=== PATIENT | female | born 1990 | race Two or more races ===

== ENCOUNTER 2017-12-28 11:20 | Emergency (ER) | payer MEDICAID ==
[~2017-12-28] VITALS: Ht 162.6 cm; Wt 93.0 kg
[2017-12-28 11:35] VITALS: BP 165/70
== END 2017-12-28 12:51 | disposition home or self-care (01) ==
LOC: ER 11:20
DX: F41.9 Anxiety disorder, unspecified (principal); F31.9 Bipolar disorder, unspecified; Z76.0 Encounter for issue of repeat prescription

== ENCOUNTER 2018-07-14 11:02 | Emergency (ER) | payer MEDICAID, OTHER ==
[~2018-07-14] VITALS: Ht 162.6 cm; Wt 88.5 kg
[2018-07-14] MEDS ORDERED: KETOROLAC TROMETH 60MG/2ML VIAL IM ONE (13:45)
[2018-07-14 14:05] VITALS: BP 146/88
== END 2018-07-14 15:01 | disposition home or self-care (01) ==
LOC: ER 11:02
DX: M54.5 Low back pain (principal); E11.9 Type 2 diabetes mellitus without complications; F17.210 Nicotine dependence, cigarettes, uncomplicated; X50.1XXA Overexertion from prolonged static or awkward postures, initial encounter; Y93.89 Activity, other specified; Y92.89 Other specified places as the place of occurrence of the external cause; Y99.8 Other external cause status
CPT/HCPCS: 72100; 96372; 99284; J1885

== ENCOUNTER 2019-07-04 20:13 | Inpatient (IN) | payer MEDICAID ==
[~2019-07-04] VITALS: Ht 162.6 cm; Wt 77.3 kg
[2019-07-04 21:40] LABS: Basophils # (auto) 0.2 uL; Basophils % (auto) 1.2 % (0.0-2.0); Eosinophils # (auto) 0.3 uL; Eosinophils % (auto) 1.8 % (0.0-7.0); Hematocrit 41.5 % (36.0-46.0); Lymphocytes # (auto) 4.9 uL; Lymphocytes % (auto) 28.9 % (10.0-50.0); Mean Corpuscular Hemoglobin 30.5 pg (28.0-32.0); Mean Corpuscular Hgb Conc. 33.8 g/dL (32.0-36.0); Mean Corpuscular Volume 90.4 fL (80.0-100.0); Neutrophils # (auto) 10.6 uL; Neutrophils % (auto) 62.1 % (37.0-80.0); Nucleated Red Blood Cells % 0.1 %; Platelet Count (auto) 427 10^3/uL (140-450); Red Blood Cells 4.59 10^6/uL (4.0-5.20); Red Cell Distribution Width 13.9 % (11.8-14.3)
[2019-07-04 21:49] LABS: Urine WBC None Seen /hpf (0 - 5)
[2019-07-04 21:55] LABS: Albumin 3.7 g/dL (3.4-5.0); Calcium 8.9 mg/dL (8.5-10.1); Potassium 3.8 mmol/L (3.5-5.1)
[2019-07-04 21:57] LABS: Bilirubin, Total 0.3 mg/dL (0.2-1.0)
[2019-07-04 22:15] LABS: Urine Bacteria NONE SEEN /hpf (None Seen); Urine Blood Negative /uL (Negative); Urine Specific Gravity 1.028 (1.001-1.035)
[2019-07-05] MEDS ORDERED: VANCOMYCIN 1GM/250ML 250 ML IV ONE (01:00)
[2019-07-05] MEDS ORDERED: HYDROmorphone HCL 2 MG/ML VL IV ONE (02:15)
[2019-07-05] MEDS ORDERED: ONDANSETRON HCL 4 MG/2 ML VIAL IV ONE (02:15)
[2019-07-05] MEDS ORDERED: SODIUM CHLORIDE 0.9% 1,000 ML IV SCH (06:10)
[2019-07-05] MEDS ORDERED: InsuLIN R (HUMAN) 100 UNITS in SODIUM CHL 0.9% 99 ML IV SCH (06:10)
[2019-07-05] MEDS ORDERED: MORPHINE SULF INJ 2 MG/ML SYRINGE 1ML IV PRN (06:15)
[2019-07-05] MEDS ORDERED: DOCUSATE SOD 100 MG CAP PO PRN (06:15)
[2019-07-05] MEDS ORDERED: TEMAZEPAM 15 MG CAP PO PRN (06:15)
[2019-07-05] MEDS ORDERED: NITROGLYCERIN 0.4 MG SL TAB SL PRN (06:15)
[2019-07-05] MEDS ORDERED: ONDANSETRON HCL 4 MG/2 ML VIAL IV PRN (06:15)
[2019-07-05] MEDS ORDERED: DEXTROSE (50%) 50ML SYRG IV PRN ×2 (06:15→10:45)
[2019-07-05] MEDS ORDERED: DEXTROSE (50%) 50ML SYRG IV ONE (06:30)
[2019-07-05] MEDS ORDERED: InsuLIN REG 1unit/0.01ml Soln (100units/ml) SC ONE (07:00)
[2019-07-05] MEDS ORDERED: ACCU-CHEK COMFORT CURVE STRIP VI ONE (07:00)
[2019-07-05] MEDS: ACCU-CHEK COMFORT CURVE STRIP VI SCH ×6 (08:27→20:00)
[2019-07-05] MEDS: ZINC SULFATE 220mg CAP or TAB PO SCH (09:41)
[2019-07-05] MEDS: ENOXAPARIN SOD 30 MG/0.3 ML SYRINGE SC SCH (09:41)
[2019-07-05] MEDS: ASCORBIC ACID 500 MG TAB PO SCH ×2 (09:41→20:40)
[2019-07-05] MEDS: FAMOTIDINE 20 MG TAB PO SCH ×2 (09:41→20:41)
[2019-07-05] MEDS ORDERED: cefTRIAXone 1GM/50ML D5W 50 ML IV ONE (10:00)
[2019-07-05] MEDS: ACETAMINOPHEN 325 MG TAB PO PRN (11:39)
[2019-07-05] MEDS: InsuLIN REG 1unit/0.01ml Soln (100units/ml) SC SCH ×3 (12:26→20:00)
[2019-07-05] MEDS: CLINDAMYCIN 600MG IV 50 ML IV SCH (14:48)
[2019-07-05 16:00] VITALS: BP 142/109
[2019-07-05] MEDS ORDERED: METF-370 PO (16:57)
[2019-07-05] MEDS ORDERED: OLAN20TA13 PO (16:57)
[2019-07-05] MEDS ORDERED: DIVA1TAB59 PO (16:57)
[2019-07-05 17:00] VITALS: BP 142/109
[2019-07-05] MEDS: metFORMIN HYDROCHLORIDE 500 MG TAB PO SCH (18:02)
[2019-07-05 22:00] VITALS: BP_SYST 135; BP_SYST 144; BP_DIAS 79; BP_DIAS 99
[2019-07-06] MEDS ORDERED: CLINDAMYCIN 600MG IV 50 ML IV ONE (00:03)
[2019-07-06] MEDS: CLINDAMYCIN 600MG IV 50 ML IV SCH ×3 (00:04→14:50)
[2019-07-06] MEDS: ACCU-CHEK COMFORT CURVE STRIP VI SCH ×6 (04:00→21:29)
[2019-07-06] MEDS: InsuLIN REG 1unit/0.01ml Soln (100units/ml) SC SCH ×6 (04:00→21:43)
[2019-07-06 05:00] VITALS: BP 151/93
[2019-07-06 06:14] LABS: Albumin 3.2 g/dL (3.4-5.0); Calcium 8.5 mg/dL (8.5-10.1); Potassium 4.2 mmol/L (3.5-5.1)
[2019-07-06 06:18] LABS: BUN/Creatinine Ratio 18.1; Bilirubin, Total 0.3 mg/dL (0.2-1.0); Total Protein 7.1 g/dL (6.4-8.2)
[2019-07-06] MEDS: metFORMIN HYDROCHLORIDE 500 MG TAB PO SCH ×2 (08:54→17:13)
[2019-07-06] MEDS: ACETAMINOPHEN 325 MG TAB PO PRN ×2 (08:55→21:40)
[2019-07-06 09:00] VITALS: BP 135/86
[2019-07-06] MEDS ORDERED: DEXTROSE (50%) 50ML SYRG IV PRN (09:15)
[2019-07-06] MEDS ORDERED: cloNIDine HCL 0.1 MG TAB PO PRN (09:30)
[2019-07-06 09:47] LABS: Basophils # (auto) 0.1 uL; Basophils % (auto) 0.9 % (0.0-2.0); Eosinophils # (auto) 0.2 uL; Eosinophils % (auto) 1.2 % (0.0-7.0); Hematocrit 41.7 % (36.0-46.0); Hemoglobin 13.7 g/dL (12.2-16.2); Lymphocytes # (auto) 3.6 uL; Lymphocytes % (auto) 25.5 % (10.0-50.0); Mean Corpuscular Hgb Conc. 32.7 g/dL (32.0-36.0); Mean Corpuscular Volume 91.6 fL (80.0-100.0); Monocytes # (auto) 0.7 uL; Monocytes % (auto) 4.9 % (0.0-12.0); Neutrophils # (auto) 9.6 uL; Neutrophils % (auto) 67.5 % (37.0-80.0); Nucleated Red Blood Cells % 0.1 %; Platelet Count (auto) 376 10^3/uL (140-450); Red Blood Cells 4.55 10^6/uL (4.0-5.20); Red Cell Distribution Width 13.7 % (11.8-14.3); White Blood Cell 14.2 10^3/uL (4.4-10.8)
[2019-07-06] MEDS ORDERED: LISINOPRIL 5 MG TAB PO SCH (10:00)
[2019-07-06] MEDS ORDERED: cefTRIAXone 1GM/50ML D5W 50 ML IV SCH (10:00)
[2019-07-06] MEDS: ZINC SULFATE 220mg CAP or TAB PO SCH (10:25)
[2019-07-06] MEDS: ASCORBIC ACID 500 MG TAB PO SCH ×2 (10:26→21:39)
[2019-07-06] MEDS: FAMOTIDINE 20 MG TAB PO SCH ×2 (10:26→21:40)
[2019-07-06] MEDS: ENOXAPARIN SOD 30 MG/0.3 ML SYRINGE SC SCH (10:28)
[2019-07-06] MEDS ORDERED: LISINOPRIL 5 MG TAB PO ONE (11:45)
[2019-07-06] MEDS: HYDROcodone-ACET 5/325MG TAB PO PRN ×2 (11:53→17:14)
[2019-07-06 13:00] VITALS: BP 186/100
[2019-07-06] MEDS: AMPICILLIN INJ 1 GM in SODIUM CHL 0.9% 50 ML IV SCH ×2 (17:13→23:34)
[2019-07-06 17:47] VITALS: BP 146/88
[2019-07-06 22:00] VITALS: BP 145/87
[2019-07-06] MEDS ORDERED: QUEtiapine FUMARATE 25 MG TAB PO SCH (22:00)
[2019-07-06] MEDS ORDERED: ATORVASTATIN 20 MG TAB PO SCH (22:00)
[2019-07-07 05:00] VITALS: BP 103/68
[2019-07-07] MEDS: AMPICILLIN INJ 1 GM in SODIUM CHL 0.9% 50 ML IV SCH ×2 (05:57→12:00)
[2019-07-07] MEDS: InsuLIN REG 1unit/0.01ml Soln (100units/ml) SC SCH ×2 (06:28→11:30)
[2019-07-07] MEDS: ACCU-CHEK COMFORT CURVE STRIP VI SCH ×2 (06:28→11:30)
[2019-07-07 08:00] VITALS: BP 146/88
[2019-07-07 08:50] VITALS: BP 117/69
[2019-07-07] MEDS: ZINC SULFATE 220mg CAP or TAB PO SCH (08:52)
[2019-07-07] MEDS: ASCORBIC ACID 500 MG TAB PO SCH (08:53)
[2019-07-07] MEDS: metFORMIN HYDROCHLORIDE 500 MG TAB PO SCH (08:53)
[2019-07-07] MEDS: ENOXAPARIN SOD 30 MG/0.3 ML SYRINGE SC SCH (08:54)
[2019-07-07] MEDS: FAMOTIDINE 20 MG TAB PO SCH (08:54)
[2019-07-07] MEDS ORDERED: LISINOPRIL 10 MG TAB PO SCH (10:00)
[2019-07-07] MEDS ORDERED: AMPI500C8 PO (10:13)
[2019-07-07 10:53] VITALS: BP 117/69
== END 2019-07-07 12:25 | disposition home or self-care (01) | DRG 383 ==
LOC: ER 20:15 → OVERFLOW 20:16 → EAST 07-05 15:57
PROVIDERS: ADMIT Emergency Medicine; ATTEND Internal Medicine
DX: L03.116 Cellulitis of left lower limb (principal); E11.65 Type 2 diabetes mellitus with hyperglycemia; E78.5 Hyperlipidemia, unspecified; I10 Essential (primary) hypertension; F17.210 Nicotine dependence, cigarettes, uncomplicated; F41.9 Anxiety disorder, unspecified; L02.416 Cutaneous abscess of left lower limb; E78.00 Pure hypercholesterolemia, unspecified; F31.9 Bipolar disorder, unspecified
CPT/HCPCS: 36415; 73700; 80053; 81001; 82962; 83036; 85025; 85652; 87040; 87205; 96365; 96366; 96367; 96372; 96375; G0378; J0696; J1815; J2405; J3490

== ENCOUNTER 2024-12-31 22:28 | Emergency (ER) | payer MEDICAID, SELFPAY ==
[~2024-12-31] VITALS: Ht 162.6 cm; Wt 90.3 kg
[~2024-12-31 22:28] MED LIST: AMPI500C9 PO; DIVA1TAB59 PO; METF-370 PO; OLAN20TA PO
[2024-12-31 23:07] VITALS: BP 171/79; PULSE 80; RESP 16; O2SAT 99
--- NOTE | 2024-12-31 23:24 | ED.PDOC ---
HPI Comments HPI: Poor Historian. 34-year-old female presents to emergency department for evaluation of midsternal chest tightness. Pain is constant nonradiating. Patient has checked her blood pressure this morning was 180/104. She took her blood pressure medications at home of labetalol and later lisinopril and she still continued to feel the same symptoms with elevated blood pressure. Patient presented to emergency department for further evaluation. Patient has some mild associated dizziness. Past Medcial History: Hypertension, diabetes, hyperlipidemia Past Surgical History: Denies any REVIEW OF SYSTEMS: CONSTITUTIONAL: Denies acute: fever, diaphoresis, chills, generalized weakness. HEAD: Denies acute: headache, photophobia Eyes: Denies acute: Double vision, vision loss, eye pain, eye discharge. EARS: Denies acute: tinnitus, hearing loss, ear discharge, ear pain, THROAT: Denies acute: sore throat, swelling, difficulty swallowing , pain with swallowing, change in voice. NECK: Denies acute: neck pain, neck swelling, stiff neck. HEART: Denies acute : palpitations, LUNGS: Denies acute: wheezing, cough, hemoptysis ABDOMEN: Denies acute: abdominal pain, Nausea, Vomiting, diarrhea, melena , hematemesis, hematochezia SKIN: Denies acute: rash, redness, lesions, itchiness. EXTREMITIES: Denies acute: calf pain, numbness, tingling, weakness, denies pain in extremity. Denies acute: Low back pain. Neuro: Denies acute: focal neurological deficit, motor or sensory focal neurological deficit, tremors, seizure like activity, confusion, change in mental status, loss of bowel or bladder function, cauda equina like symptoms. : Denies acute: dysuria, hematuria, flank pain, increase in urinary frequency. PSYCH: Denies acute: hallucination, suicidal ideation, homicidal ideation. FEMALE: Denies acute: abnormal vaginal bleeding, foul odor, unusual discharge. PHYSICAL EXAM: General: no acute distress, awake and alert. Head: normocephalic, atraumatic. Neck: supple, trachea is midline, no swelling. Throat: Normal phonation. Eyes:, no erythema, no purulent discharge, no proptosis, no icterus. Heart: regular rate, regular rhythm, no significant murmur appreciated. Lungs: no apparent respiratory distress, Able to speak in full sentences. No wheezing, no rhonchi, no crackles. No stridors Clear to auscultation bilaterally. Abdomen: non tender to palpation, non distended, soft, no guarding, no rebound, + bowel sounds. Neuro: Awake, Alert, oriented to name, self, situation, follows commands GCS=15. Speech is normal. Skin: no petechia, no purpura, no cyanosis, non-pale, not jaundice. Lower extremities: --no - Pitting edema no deformity, no focal swelling, no calf TTP. Makes eye contact. moves all four extremities. Face: no apparent facial droop. Ambulating in the ED independently. Chief Complaint: High Blood Pressure Time Seen by MD: 22:52 Primary Care Provider: BÁRBARA Reviewed Notes: Nurses Notes, Medications, Allergies Allergies: Coded Allergies: No Known Drug Allergy (Verified Allergy, Unknown, 12/28/17) Home Meds Active Scripts Ampicillin (Ampicillin) 500 Mg Cap, 1000 MG PO BID for 5 Days, CAP Prov:MATT KEARNEY MD 07/07/19 Reported Medications Olanzapine (Zyprexa) 20 Mg Tab, 25 MG PO QPM, TAB 07/05/19 Metformin Hydrochloride (Metformin Hcl) 500 Mg Tab, 1 TAB PO TID, #60 TAB 3 Refills 07/05/19 Divalproex Sodium (Divalproex Sodium Dr) 500 Mg Tab, 250 MG PO Q8HR, TAB 07/05/19 Information Source: Patient Mode of Arrival: Ambulatory Past Medical History PAST MEDICAL HISTORY: Anxiety, Depression, DM, High Lipids, HTN Surgical History: Denies all surgeries EAR SPECIALIST History: Denies all EAR SPECIALIST Hx Family History Family History: Unknown Social History Smoker: Cigarettes Alcohol: Denies ETOH Use Drugs: Denies Drug Use Lives In: Home Was a procedure done? Was a procedure done?: No CP Differential Dx Differential Diagnosis: N/A Differential Diagnosis: Other (DDX include renal disease, thyroid disease, electrolyte abnormality, increased salt intake, medications non-compliance, undiagnosed HTN, Hypertensive crisis, hypertensive urgency., drug toxicity.) Differential Diagnosis: Other (Ddx include but not limitied to gastritis, musculoskeletal pain, radiculopathy, atypical chest pain, dissection, aneurysm, ACS, unstable angina, hiatal hernia, GERD, anxiety, costochondritis, PE, pneumothroax, neoplasm, cardiac ischemia, drug abuse, anemia.) X-Ray, Labs, Meds, VS Vital Signs Date Time Temp Pulse Resp B/P (MAP) Pulse Ox O2 Delivery O2 Flow Rate FiO2 12/31/24 23:07 98.1 80 16 171/79 (109) 99 12/31/24 23:03 73 Time of 1ST Reevaluation: 00:00 Reevaluation 1ST: Patient Education/Counseling: Other Family Education/Counseling: Other Comments Patient eloped Patient presented with the above HPI.-cardiac-----workup was initiated. patient was found with the above mentioned diagnosis. the following medications were ordered: please refer to order lists of meds and tests obtained by myself Dr. Sanz. I was notified that the patient eloped. All the reports of any imaging studies that were ordered by myself were reviewed by myself. Departure 1 Departure Time of Disposition: 03:02 Impression: Primary Impression: Eloped from emergency department Additional Impression: Chest pain Disposition: LEFT AWOL/ELOPED Condition: Other Additional Instructions: Patient eloped Discharged With: Other Critical Care Note Critical Care Time?: No Heart Score Heart Score: Heart Score Response (Comments) Value History Slightly Suspicious 0 EKG Normal 0 Age <45 0 Risk Factors >3 or Hx ASHD 2 Troponin Normal limit 0 Total 2 DOTTIE SANZ DO Dec 31, 2024 23:23
[2024-12-31] MEDS ORDERED: ASPirin-EC 325mg tab PO ONE (23:30)
[2024-12-31] MEDS ORDERED: NITROGLYCERIN 0.4 MG SL TAB SL ONE (23:30)
--- NOTE | 2025-01-01 06:05 | ECG ---
[facility] Test Date: 2024-12-31 Test Time: 23:03:04 Pat Name: ERIN SUAREZ Department: ER Room: Gender: F Private Client Advisor: CLAU : [id number] Requested By: DOTTIE JANE Order Number: [id number] Reading MD: Conner Little Measurements Intervals [place] Rate: 73 P: 44 WI: 154 QRS: 72 QRSD: 85 T: 40 QT: 368 QTc: 406 Interpretive Statements Sinus rhythm Electronically Signed On 01-01-2025 9:50:10 PST by Conner Little Please click the below link to view image of tracing.
== END 2025-01-01 | disposition left against medical advice (07) ==
LOC: ER 22:28
DX: R07.89 Other chest pain (principal); F41.9 Anxiety disorder, unspecified; F32.9 Major depressive disorder, single episode, unspecified; E11.9 Type 2 diabetes mellitus without complications; I10 Essential (primary) hypertension; E78.5 Hyperlipidemia, unspecified; F17.210 Nicotine dependence, cigarettes, uncomplicated; Z53.29 Procedure and treatment not carried out because of patient's decision for other reasons
CPT/HCPCS: 80053; 81001; 83880; 84484; 93005